=== PATIENT | female | born 1965 | race Caucasian/White ===

== ENCOUNTER → 2016-11-28 | Outpatient (REF) | payer OTHER | LOC: M SFHCWAGY 17:01 | PROVIDERS: ATTEND Nurse Practitioner Family | DX: Z12.12 Encounter for screening for malignant neoplasm of rectum (principal) ==

== ENCOUNTER → 2016-11-28 | Outpatient (CLI) | payer OTHER ==
--- NOTE | 2016-11-28 10:10 | REP ---
Clinical: Lower chest and right upper quadrant pain . Comparison: None . Technique: PA and lateral. Findings: The mediastinum and cardiac silhouette are normal. The lung [place] are clear and without acute consolidation, effusion, or pneumothorax. The skeletal structures are intact and normal. Impression: 1. No acute cardiopulmonary process. Signed by Danny Villalobos MD 11/28/2016 10:01 A
--- NOTE | 2016-11-28 10:33 | REP ---
Clinical: Arthritis. Chondromalacia patellae. Technique: AP and lateral views of the knee. Findings: No acute fracture dislocation. No overt osteoarthritic degenerative changes. Patella appears normal in the frontal and lateral projection. Impression: Normal right knee radiographs. Signed by Danny Villalobos MD 11/28/2016 10:25 A
--- NOTE | 2016-11-28 10:33 | REP ---
Clinical: Trauma. Technique: AP, lateral, bilateral oblique and sunrise views left knee . Findings: The osseous structures and joint spaces are intact and age appropriate. There is no evidence for acute fracture or dislocation. No joint effusion is appreciated. Surrounding soft tissues are unremarkable. No subcutaneous emphysema or radiodense foreign body. Impression: Age appropriate examination. No overt osteoarthritic changes appreciated. Signed by Danny Villalobos MD 11/28/2016 10:24 A
[2016-11-28 12:11] LABS: FOLLICLE STIMULATING HORMONE 23.8 mIU/mL; LUTEINIZING HORMONE 10.1 mIU/mL
[2016-11-28 12:12] LABS: ALBUMIN 3.6 GM/DL (3.2-5.2); ALKALINE PHOSPHATASE 48 U/L (45-117); ALT/SGPT 10 U/L (12-78); AMYLASE 50 U/L (25-115); ANION GAP 8 MEQ/L (8-16); AST/SGOT 8 U/L (15-37); BASO % 0.7 % (0.0-1.0); BILIRUBIN,TOTAL 0.5 MG/DL (0.2-1.0); BLOOD UREA NITROGEN 12 MG/DL (7-18); CARBON DIOXIDE LEVEL 27 MEQ/L (21-32); CHLORIDE LEVEL 109 MEQ/L (98-107); CHOLESTEROL LEVEL 217 MG/DL (<200); EOS # 0.1 K/mm3 (0.0-0.50); EOS % 2.3 % (0.0-3.0); FREE T4 0.95 NG/DL (0.76-1.46); GLOMERULAR FILTRATION RATE > 60.0 (>51); GLUCOSE, FASTING 84 MG/DL (70-105); LARGE UNSTAINED CELL # 0.1 K/mm3 (0.0-0.4); LYMPH # 1.9 K/mm3 (1.5-4.5); LYMPH % 30.2 % (24.0-44.0); MEAN CORPUSCULAR HEMOGLOBIN 29.9 pg (27.0-33.0); MEAN CORPUSCULAR HGB CONC 33.2 g/dl (32.0-36.5); MEAN CORPUSCULAR VOLUME 90.1 fl (80.0-96.0); MONO # 0.3 K/mm3 (0.0-0.8); MONO % 4.8 % (0.0-5.0); NEUTROPHILS # 3.7 K/mm3 (1.8-7.7); PLATELET COUNT, AUTOMATED 270 k/mm3 (150-450); RED CELL DISTRIBUTION WIDTH 12.9 % (11.5-14.5); SODIUM LEVEL 144 MEQ/L (136-145); TOTAL PROTEIN 6.6 GM/DL (6.4-8.2); TRIGLYCERIDES LEVEL 59 MG/DL (<150)
[2016-11-28 12:17] LABS: POTASSIUM SERUM 5.5 MEQ/L (3.5-5.1)
--- NOTE | 2016-11-28 12:17 | REP ---
Clinical: Right upper quadrant abdominal pain. Technique: Petit scale ultrasound using curved array transducer. Findings: The liver is relatively normal in echogenicity, size and contour with few scattered hepatic cysts identified measuring up to 2.2 cm approaching the dome. No further significant hepatic lesions are identified. The pancreas is unremarkable. The gallbladder is normal without gallstones, wall thickening or pericholecystic fluid. No biliary ductal dilatation is appreciated, and the common bile duct measures 2.4 mm mm diameter. The right kidney is normal in reniform shape without hydronephrosis and measures 9.6 x 5.3 x 4.4 cm cm. No ascites. Visualized portions of the abdominal aorta normal. Impression: A few scattered hepatic cysts up to 2.2 cm. Otherwise normal right upper quadrant ultrasound. Signed by Danny Villalobos MD 11/28/2016 12:09 P
== END ==
LOC: M LRY 08:52
PROVIDERS: ATTEND Family Medicine
DX: Z00.00 Encounter for general adult medical examination without abnormal findings (principal); R10.11 Right upper quadrant pain; N95.1 Menopausal and female climacteric states; M22.41 Chondromalacia patellae, right knee; M17.12 Unilateral primary osteoarthritis, left knee

== ENCOUNTER → 2016-12-05 | Outpatient (CLI) | payer OTHER ==
--- NOTE | 2016-12-05 19:06 | ECGEPIP ---
Stationary ECG Study [facility] Test Date: 2016-12-05 Pat Name: VIOLETTE SEGURA Department: Room: - Gender: F [employer]: SELENA : 1965 Requested By: Song Barker Order Number: [id number] Reading MD: Santosh Nazario Measurements Intervals [place] Rate: 68 P: 54 CT: 166 QRS: -59 QRSD: 100 T: 21 QT: 393 QTc: 420 Interpretive Statements SINUS RHYTHM Leftward axis Delayed anterior R wave progression Comparison tracing not on file Electronically Signed On 12-05-2016 19:06:16 EST by Santosh Nazario
== END ==
LOC: M EKG 16:33
PROVIDERS: ATTEND Family Medicine
DX: Z00.00 Encounter for general adult medical examination without abnormal findings (principal)

== ENCOUNTER → 2018-05-23 | Outpatient (REF) | payer OTHER | LOC: M SFHCWAGY 10:59 | DX: Z12.4 Encounter for screening for malignant neoplasm of cervix (principal) ==

== ENCOUNTER → 2018-05-23 | Outpatient (CLI) | payer OTHER | LOC: M WHC 10:36 | DX: Z12.31 Encounter for screening mammogram for malignant neoplasm of breast (principal) | CPT/HCPCS: 77067 ==

== ENCOUNTER → 2019-09-23 | Outpatient (CLI) | payer OTHER ==
--- NOTE | 2019-09-23 12:55 | REPMRS ---
Patient History The patient states she had a clinical breast exam in 2018. Family history of prostate cancer at age 50 or over in father. Digital Woman Screen Mammo: September 23, 2019 - Exam #: [id number] Bilateral CC and MLO view(s) were taken. Technologist: Genny Soliz, Technologist Prior study comparison: May 23, 2018, bilateral digital woman screen mammo performed at [facility]. August 12, 2016, digital woman screen mammo performed at [facility]. FINDINGS: The breast tissue is heterogeneously dense. This may lower the sensitivity of mammography. There is a moderate amount of heterogeneously dense fibroglandular tissue which is fairly symmetric. There is no interval development of dominant mass, architectural distortion, or grouped microcalcification typical of malignancy. There has been no change in the appearance of the mammogram from the prior studies. 3-D tomosynthesis shows no additional findings. Assessment: BI-RADS/ACR category 1 mammogram. Negative Mammogram. Recommendation Routine screening mammogram of both breasts in 1 year (for women over age 40). This patient's Lifetime Breast Cancer RIsk is estimated at 11.1 %. This mammogram was interpreted with the aid of an FDA-approved computer-aided dectection system. Electronically Signed By: Sharad Corrales MD 09/23/19 [id number]
== END ==
LOC: M WHC 11:14
PROVIDERS: ATTEND Nurse Practitioner Family
DX: Z12.31 Encounter for screening mammogram for malignant neoplasm of breast (principal)